=== PATIENT | male | born 1970 | race African-American/Black ===

== ENCOUNTER 2020-01-06 02:05 | Emergency (ER) | payer MEDICAID ==
[~2020-01-06] VITALS: Ht 172.7 cm; Wt 80.0 kg
[2020-01-06] MEDS ORDERED: SODIUM CHLORIDE 0.9% 1,000 ML IV ONE (04:41)
[2020-01-06 07:22] VITALS: BP 134/75
== END 2020-01-06 07:30 | disposition home or self-care (01) ==
LOC: ER 02:05
DX: K59.00 Constipation, unspecified (principal); R06.02 Shortness of breath; I10 Essential (primary) hypertension; Z98.890 Other specified postprocedural states
CPT/HCPCS: 71045; 74018; 99285; J7030